=== PATIENT | male | born 1980 | race Caucasian/White ===

== ENCOUNTER 2017-01-22 01:13 | Emergency (ER) | payer OTHER ==
[2017-01-22] MEDS ORDERED: LORazepam INJ* 2 MG/ML 1 ML VIAL IM ONE (02:03)
[2017-01-22] MEDS ORDERED: Ketorolac INJ* 60 MG/2 ML VIAL IM ONE (02:03)
[2017-01-22] MEDS ORDERED: oxyCODONE/Acetamin 5/325 MG* TAB PO ONE ×2 (03:29)
[2017-01-22 04:11] VITALS: BP 116/79
--- NOTE | 2017-01-22 08:04 | RAD ---
INDICATION: Low back pain. COMPARISON: There are no prior studies available for comparison. TECHNIQUE: 3 views of the lumbar spine were obtained including lateral, AP and a coned-down lateral view of the lumbar sacral junction. FINDINGS: There is a mild lumbar scoliosis convex toward the left side. The vertebra are otherwise in normal alignment. No fracture is seen. Disc spaces appear maintained. IMPRESSION: MILD SCOLIOSIS, OTHERWISE UNREMARKABLE STUDY.
--- NOTE | 2017-01-27 23:22 | ED ---
Lucian John Erika, scribed for Emil Orosco MD on 01/22/17 at 0219 . Back Pain - HPI Summary HPI Summary: Patient is a 36-year-old male presenting to the ED with a CC of back pain starting at 21:00 on 01/21/2017. Patient reports pain in the lower back. He reports he has chronic neck pain, and this is a similar quality to the pain in his neck but is lumbar. Pain has been gradually worsening, and was not alleviated by Toradol. Pain is aggravated by straightening his back. Patient states he has had similar symptoms 2x before. - History of Current Complaint Chief Complaint: EDBackInjuryPain Stated Complaint: BACK PAIN Time Seen by Provider: 01/22/17 02:00 Hx Obtained From: Patient Onset/Duration: Gradual Onset, Lasting Hours, Still Present Onset/Duration: Atraumatic Timing: Constant Severity Initially: Mild Severity Currently: Moderate Pain Intensity: 10 Pain Scale Used: 0-10 Numeric Aggravating Symptom(s): Movement - straightening back Alleviating Symptom(s): Nothing Associated Signs And Symptoms: Positive: Negative - Allergies/Home Medications Allergies/Adverse Reactions: Allergies Allergy/AdvReac Type Severity Reaction Status Date / Time No Known Allergies Allergy Verified 07/21/16 22:24 PMH/Surg Hx/FS Hx/Imm Hx Endocrine/Hematology History: Denies: Hx Anticoagulant Therapy, Hx Diabetes, Hx Thyroid Disease Cardiovascular History: Reports: Hx Hypertension Denies: Hx Congestive Heart Failure, Hx Deep Vein Thrombosis, Hx Myocardial Infarction, Hx Pacemaker/ICD Respiratory History: Denies: Hx Asthma, Hx Chronic Obstructive Pulmonary Disease (COPD), Hx Lung Cancer, Hx Pneumonia, Hx Pulmonary Embolism GI History: Denies: Hx Gall Bladder Disease, Hx Gastrointestinal Bleed, Hx Ulcer, Hx Urosepsis History: Denies: Hx Kidney Stones, Hx Renal Disease Neurological History: Denies: Hx Dementia, Hx Migraine, Hx Seizures, Hx Transient Ischemic Attacks (TIA) Psychiatric History: Denies: Hx Anxiety, Hx Depression, Hx Schizophrenia, Hx Bipolar Disorder - Surgical History Surgery Procedure, Year, and Place: Sinus, 04/13/15, Dr. Kyree Felder - Immunization History Date of Tetanus Vaccine: utd Date of Influenza Vaccine: utd Infectious Disease History: No Infectious Disease History: Denies: Hx Clostridium Difficile, Hx Hepatitis, Hx Human Immunodeficiency Virus (HIV), Hx of Known/Suspected MRSA, Hx Shingles, Hx Tuberculosis, Hx Known/ Suspected VRE, Hx Known/Suspected VRSA, History Other Infectious Disease, Traveled Outside the [place] in Last 30 Days - Family History Known Family History: Positive: Hypertension, Other - cancer Negative: Cardiac Disease - Social History Alcohol Use: None Hx Substance Use: No Substance Use Type: Reports: None Hx Tobacco Use: Yes Smoking Status (MU): Light Every Day Tobacco Smoker Type: Cigarettes Amount Used/How Often: 1/5 PPD Length of Time of Smoking/Using Tobacco: 2 Years Have You Smoked in the Last Year: Yes Review of Systems Negative: Fever Positive: Myalgia - back pain All Other Systems Reviewed And Are Negative: Yes Physical Exam Triage Information Reviewed: Yes Vital Signs On Initial Exam: Initial Vitals Temp Pulse Resp BP Pulse Ox 97.8 F 100 18 147/108 98 01/22/17 01:20 01/22/17 01:20 01/22/17 01:20 01/22/17 01:20 01/22/17 01:20 Vital Signs Reviewed: Yes - Noble Coma Scale Coma Scale Total: 15 Diagnostics - Vital Signs Vital Signs Temp Pulse Resp BP Pulse Ox 01/22/17 01:20 97.8 F 100 18 147/108 98 - Laboratory Lab Statement: Any lab studies that have been ordered have been reviewed, and results considered in the medical decision making process. - Radiology Lumbar Spine XR Xray Interpretation: No Acute Changes Radiology Interpretation Completed By: ED Physician Re-Evaluation - Re-Evaluation First Eval Re-Evaluation Time: 03:28 Change: Improved Comment: Discussed XR results with patient Back Pain Course/Dx - Course Assessment/Plan: A 36 y/o M presents to the ED with a CC of lower back pain. Lumbar XR shows no acute findings. Patient is given toradol and ativan in the ED course. Patient is discharged home with follow up from his PCP. - Diagnoses Provider Diagnoses: Back pain Discharge - Discharge Plan Condition: Stable Disposition: HOME Patient Education Materials: Back Pain (ED) Referrals: Kar Khan MD [Primary Care Provider] - Additional Instructions: Please follow up with your PCP. The documentation as recorded by the Lucian hines Erika accurately reflects the service I personally performed and the decisions made by , Emil Orosco MD.
== END 2017-01-22 04:10 | disposition home or self-care (01) ==
LOC: ED 01:13
DX: M54.9 Dorsalgia, unspecified (principal); F17.210 Nicotine dependence, cigarettes, uncomplicated; M41.9 Scoliosis, unspecified
CPT/HCPCS: 72100; 96372; 99282; A9270-GY; J1885; J2060

== ENCOUNTER 2017-04-11 02:54 | Emergency (ER) | payer OTHER ==
[2017-04-11 03:00] VITALS: BP 161/103
[2017-04-11] MEDS ORDERED: Cyclobenzaprine TAB* 10 MG PO ONE (03:15)
[2017-04-11] MEDS ORDERED: traMADol TAB* 50 MG PO ONE (03:16)
--- NOTE | 2017-04-11 03:24 | ED ---
Shabbir John Rebecca, scribed for Kary Bedolla MD on 04/11/17 at 0307 . Neck Pain - HPI Summary HPI Summary: Pt is a 36 y/ M who presents to ED c/o acute on chronic neck and back pain, worsened tonight and constant since onset. Pain is currently severe, ranked 9/ 10. Sx aggravated by recent rain and alleviated by nothing. Unchanged by 2 Oxycodone and 30 mg Toradol at 2200. PMHx degenerative disc disease for which he was prescribed the oxycodone and Toradol. - History of Current Complaint Chief Complaint: EDGeneral Stated Complaint: ALL OVER BODY ACHES Time Seen by Provider: 04/11/17 03:06 Hx Obtained From: Patient Timing: Constant Onset/Duration: Still Present Severity Currently: Severe Pain Intensity: 9 Pain Scale Used: 0-10 Numeric Location: Diffuse - Neck and back Aggravating Factors: Nothing Alleviating Factors: Nothing Associated Signs & Symptoms: Positive: Negative Related History: Other - PMHx degenerative disc disease - Allergies/Home Medications Allergies/Adverse Reactions: Allergies Allergy/AdvReac Type Severity Reaction Status Date / Time No Known Allergies Allergy Verified 04/11/17 02:55 PMH/Surg Hx/FS Hx/Imm Hx Endocrine/Hematology History: Denies: Hx Anticoagulant Therapy, Hx Diabetes, Hx Thyroid Disease Cardiovascular History: Reports: Hx Hypertension Denies: Hx Congestive Heart Failure, Hx Deep Vein Thrombosis, Hx Myocardial Infarction, Hx Pacemaker/ICD Respiratory History: Denies: Hx Asthma, Hx Chronic Obstructive Pulmonary Disease (COPD), Hx Lung Cancer, Hx Pneumonia, Hx Pulmonary Embolism GI History: Denies: Hx Gall Bladder Disease, Hx Gastrointestinal Bleed, Hx Ulcer, Hx Urosepsis History: Denies: Hx Kidney Stones, Hx Renal Disease Musculoskeletal History: Reports: Other Musculoskeletal History - Degenerative Disc Disease Neurological History: Denies: Hx Dementia, Hx Migraine, Hx Seizures, Hx Transient Ischemic Attacks (TIA) Psychiatric History: Denies: Hx Anxiety, Hx Depression, Hx Schizophrenia, Hx Bipolar Disorder - Surgical History Surgery Procedure, Year, and Place: Sinus, 04/13/15, Dr. Kyree Felder - Immunization History Date of Tetanus Vaccine: utd Date of Influenza Vaccine: utd Infectious Disease History: No Infectious Disease History: Denies: Hx Clostridium Difficile, Hx Hepatitis, Hx Human Immunodeficiency Virus (HIV), Hx of Known/Suspected MRSA, Hx Shingles, Hx Tuberculosis, Hx Known/ Suspected VRE, Hx Known/Suspected VRSA, History Other Infectious Disease, Traveled Outside the [place] in Last 30 Days - Family History Known Family History: Positive: Hypertension, Other - cancer Negative: Cardiac Disease - Social History Lives: With Family Alcohol Use: None Hx Substance Use: No Substance Use Type: Reports: None Hx Tobacco Use: Yes Smoking Status (MU): Light Every Day Tobacco Smoker Type: Cigarettes Amount Used/How Often: 1/5 PPD Length of Time of Smoking/Using Tobacco: 2 Years Have You Smoked in the Last Year: Yes Review of Systems Constitutional: Negative Eyes: Negative ENT: Negative Cardiovascular: Negative Respiratory: Negative Gastrointestinal: Negative Genitourinary: Negative Positive: Arthralgia - Acute on chronic neck and back pain Skin: Negative Neurological: Negative Psychological: Normal All Other Systems Reviewed And Are Negative: Yes Physical Exam - Summary Physical Exam Summary: General: Well appearing, no pain distress Skin: Warm, Skin Color Reflects Adequate Perfusion, Dry Eyes: EOMI, KOURTNEY ENT: Pharynx normal, TMs normal Neck: Supple, nontender Respiratory: CTA, breath sounds present, no rhonchi, no wheezes, no rales Cardiovascular: RRR, no murmur, no rub, no gallop Abdomen: Soft, nontender, Non-distended, no guarding, no rebound Bowel: Present Musculoskeletal: ANANDA, No edema, Diffuse neck and back pain Neuro: Sensory/motor intact, A&Ox3, CN intact 2-12 Psych: Affect/mood appropriate Triage Information Reviewed: Yes Vital Signs On Initial Exam: Initial Vitals Temp Pulse Resp BP Pulse Ox 97.6 F 97 20 161/103 99 04/11/17 02:57 04/11/17 02:57 04/11/17 02:57 04/11/17 02:57 04/11/17 02:57 Vital Signs Reviewed: Yes Diagnostics - Vital Signs Vital Signs Temp Pulse Resp BP Pulse Ox 04/11/17 02:57 97.6 F 97 20 161/103 99 - Laboratory Lab Statement: Any lab studies that have been ordered have been reviewed, and results considered in the medical decision making process. Neck Course/Dx - Course Course Of Treatment: 36 yo male who has djd and received 180 tabs of oxycodone monthly (weblogic administrator checked) pt here with exacerbation of his neck and diffuse back pain without trauma or cause. Not wanting to disrupt his narcotic med prescriptions pt was offered ultram and flexeril and a few doses were sent to his pharmacy - Diagnoses Provider Diagnoses: Chronic pain Discharge - Discharge Plan Condition: Stable Disposition: HOME Prescriptions: Cyclobenzaprine TAB* [Flexeril 10 MG TAB*] 10 mg PO TID PRN #14 tab PRN Reason: Spasms traMADol TAB* [Ultram*] 50 mg PO Q12H PRN #7 tab MDD 2 PRN Reason: Pain The documentation as recorded by the Shabbir hines Rebecca accurately reflects the service I personally performed and the decisions made by me, Kary Bedolla MD.
== END 2017-04-11 03:37 | disposition home or self-care (01) ==
LOC: ED 02:54
DX: G89.29 Other chronic pain (principal); M54.9 Dorsalgia, unspecified; M54.2 Cervicalgia; F17.210 Nicotine dependence, cigarettes, uncomplicated
CPT/HCPCS: 99282; A9270-GY

== ENCOUNTER 2017-06-03 12:30 | Emergency (ER) | payer OTHER ==
[2017-06-03 12:42] VITALS: BP 130/81
--- NOTE | 2017-06-03 13:24 | UC ---
Hip/Pelvis Pain - HPI Summary HPI Summary: 36 you male with a one week hx of right thigh pain/tenderness/swelling Are seems very localized no trauma pain worse with touch worse with climbing stairs his leg has buckled a few times - History Of Current Complaint Chief Complaint: UCLowerExtremity Stated Complaint: RIGHT THIGH PAIN Time Seen by Provider: 06/03/17 12:57 Hx Obtained From: Patient Onset/Duration: Gradual Onset, Lasting Weeks - 3 Timing: Constant Severity Initially: Moderate Severity Currently: Moderate Pain Intensity: 3 - 9 at times Pain Scale Used: 0-10 Numeric Location: Discrete At: Character Of Pain: Unable To Describe Aggravating Factor(s): Weight Bearing, Other - touch/strairs Alleviating Factor(s): Rest, OTC Medications - relief with advil Associated Signs And Symptoms: Positive: Swelling Torso: 1 - swollen/tender. feels like quadricept mass. no warmth or redness. skin intact - Allergies/Home Medications Allergies/Adverse Reactions: Allergies Allergy/AdvReac Type Severity Reaction Status Date / Time No Known Allergies Allergy Verified 06/03/17 12:37 Home Medications: Home Medications NK [No Home Medications Reported] 06/03/17 [History Confirmed 06/03/17] PMH/Surg Hx/FS Hx/Imm Hx Previously Healthy: Yes Other History Of: Negative For: HIV, Hepatitis B, Hepatitis C, Anticoagulant Therapy - Surgical History Surgical History: Yes Surgery Procedure, Year, and Place: Sinus, 04/13/15, Dr. Kyree Felder - Family History Known Family History: Positive: Hypertension, Other - cancer Negative: Cardiac Disease - Social History Alcohol Use: None Substance Use Type: None Smoking Status (MU): Heavy Every Day Tobacco Smoker Type: Cigarettes Amount Used/How Often: 1 PPD Length of Time of Smoking/Using Tobacco: 2 Years Have You Smoked in the Last Year: Yes Household Exposure Type: Cigarettes - Immunization History Most Recent Influenza Vaccination: no Review of Systems Constitutional: Negative Skin: Negative Eyes: Negative ENT: Negative Respiratory: Negative Cardiovascular: Negative Gastrointestinal: Negative Genitourinary: Negative Motor: Negative Neurovascular: Negative Musculoskeletal: Myalgia Neurological: Negative Psychological: Negative All Other Systems Reviewed And Are Negative: Yes Physical Exam Triage Information Reviewed: Yes Appearance: Well-Appearing, No Pain Distress, Well-Nourished Vital Signs: Initial Vital Signs Temp 99.4 F 06/03/17 12:37 Pulse 83 06/03/17 12:37 Resp 16 06/03/17 12:37 BP 130/81 06/03/17 12:37 Pulse Ox 100 06/03/17 12:37 Vital Signs Reviewed: Yes Eyes: Positive: Conjunctiva Clear ENT: Positive: Hearing grossly normal. Negative: Nasal congestion, Nasal drainage, Trismus, Muffled/hoarse voice Neck: Positive: Supple, Nontender, No Lymphadenopathy Respiratory: Positive: Lungs clear, Normal breath sounds, No respiratory distress, No accessory muscle use Cardiovascular: Positive: RRR, No Murmur, Pulses Normal Abdomen Description: Positive: Nontender, No Organomegaly, Soft Musculoskeletal: Positive: Other: - see image Neurological: Positive: Alert Psychological Exam: Normal Skin Exam: Normal Hip Injury Course/Dx - Differential Dx/Diagnosis Provider Diagnoses: right thigh tenderness (?mass quadricepts) Discharge - Discharge Plan Condition: Stable Disposition: HOME Referrals: [facility] [Outside] (call for help finding a local MD) eHrmilo Hidalgo MD [Medical Doctor] - Additional Instructions: I am unsure of the cause of your localized right anterior thigh pain and swelling I think you need some special imaging to determine the cause advil
== END 2017-06-03 13:25 | disposition home or self-care (01) ==
LOC: UCCORT 12:30
DX: M79.651 Pain in right thigh (principal); F17.210 Nicotine dependence, cigarettes, uncomplicated
CPT/HCPCS: 99211; G0463

== ENCOUNTER 2017-12-23 17:08 | Emergency (ER) | payer OTHER ==
[2017-12-23 17:36] VITALS: BP 133/83
[2017-12-23] MEDS ORDERED: Naproxen TAB* 250 MG PO ONE (17:43)
--- NOTE | 2017-12-23 17:46 | UC ---
Throat Pain/Nasal Parker HPI - HPI Summary HPI Summary: I'm having "temporal mandibular joint pain" for about 1 week. denies any injury or dental pain. - History of Current Complaint Chief Complaint: UCDentalProblem Stated Complaint: JAW PAIN Time Seen by Provider: 12/23/17 17:35 Hx Obtained From: Patient Onset/Duration: Gradual Onset Pain Intensity: 7 Associated Signs & Symptoms: Negative: Dysphagia, Drooling, Fever, Rash Related History: Prior ENT Surgery - Epiglottits Risk Factors Epiglottis Risk Factors: Negative - Allergies/Home Medications Allergies/Adverse Reactions: Allergies Allergy/AdvReac Type Severity Reaction Status Date / Time No Known Allergies Allergy Verified 12/23/17 17:36 PMH/Surg Hx/FS Hx/Imm Hx - Additional Past Medical History Additional PMH: sinusitis Other History Of: Negative For: HIV, Hepatitis B, Hepatitis C, Anticoagulant Therapy - Surgical History Surgical History: Yes Surgery Procedure, Year, and Place: Sinus, 04/13/15, Dr. Kyree Felder - Family History Known Family History: Positive: Hypertension, Other - cancer Negative: Cardiac Disease - Social History Occupation: Employed Full-time Alcohol Use: None Substance Use Type: None Smoking Status (MU): Heavy Every Day Tobacco Smoker Type: Cigarettes Amount Used/How Often: 1 PPD Length of Time of Smoking/Using Tobacco: 2 Years Have You Smoked in the Last Year: Yes Household Exposure Type: Cigarettes - Immunization History Most Recent Influenza Vaccination: no Vaccination Up to Date: Yes Review of Systems Constitutional: Negative Skin: Negative Eyes: Negative ENT: Negative Respiratory: Negative Cardiovascular: Negative Gastrointestinal: Negative Genitourinary: Negative Motor: Negative Neurovascular: Negative Musculoskeletal: Negative Neurological: Negative Psychological: Negative Is Patient Immunocompromised?: No All Other Systems Reviewed And Are Negative: Yes Physical Exam Triage Information Reviewed: Yes Appearance: Well-Appearing Vital Signs: Initial Vital Signs Temp 98 F 12/23/17 17:28 Pulse 82 12/23/17 17:28 Resp 16 12/23/17 17:28 BP 133/83 12/23/17 17:28 Pulse Ox 97 12/23/17 17:28 Vital Signs Reviewed: Yes Eyes: Positive: Conjunctiva Clear ENT: Positive: Pharynx normal, TMs normal, Other - Tender over R TMJ and pain with active ROM. Negative: Nasal congestion, Nasal drainage, Trismus Dental: Negative: Percussion Tenderness @, Dental Fracture @, Abscess @ Neck: Positive: Supple, Nontender, No Lymphadenopathy Respiratory: Positive: Lungs clear, Normal breath sounds Cardiovascular: Positive: RRR, No Murmur Abdomen Description: Positive: Nontender, No Organomegaly, Soft Bowel Sounds: Positive: Present Musculoskeletal: Positive: No Edema Neurological: Positive: Alert Psychological: Positive: Age Appropriate Behavior Skin Exam: Normal Throat Pain/Nasal Course/Dx - Course Course Of Treatment: exam c/w R TMJ syndrom. pt is established with Dr Adorno and will f/u with him - Differential Dx/Diagnosis Provider Diagnoses: R TMJ syndrom Discharge - Discharge Plan Condition: Stable Disposition: HOME Prescriptions: Naproxen [Naprosyn] 500 mg PO BID 7 Days #14 tablet Patient Education Materials: Temporomandibular Disorder (ED) Referrals: Leti Hallman MD [Primary Care Provider] - As Soon As Possible Gualberto Adorno MD [Medical Doctor] - As Soon As Possible
== END 2017-12-23 17:55 | disposition home or self-care (01) ==
LOC: UCCORT 17:08
DX: M26.601 Right temporomandibular joint disorder, unspecified (principal); F17.210 Nicotine dependence, cigarettes, uncomplicated
CPT/HCPCS: 99212; A9270-GY; G0463

== ENCOUNTER 2018-11-27 17:07 | Emergency (ER) | payer OTHER ==
--- NOTE | 2018-11-27 18:10 | UC ---
UC General HPI - HPI Summary HPI Summary: since last pm, pt c/o sinus congestion, n/v, fatigue and feeling light headed. + body aches and fever. 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 no diarrhea. did not take his BP pills today. states avg BP 120/80 but BP sometimes runs low like now as well. denies any changes in his pain and BP medication doses. - History of Current Complaint Chief Complaint: UCGeneralIllness Stated Complaint: SINUS PRESSURE,VOMITING,DIZZY Time Seen by Provider: 11/27/18 18:00 Hx Obtained From: Patient Pain Intensity: 5 Associated Signs & Symptoms: Negative: Abdominal Pain, Cough, Diarrhea - Allergy/Home Medications Allergies/Adverse Reactions: Allergies Allergy/AdvReac Type Severity Reaction Status Date / Time No Known Allergies Allergy Verified 11/27/18 17:30 Home Medications: Home Medications Albuterol HFA INHALER* [Ventolin HFA Inhaler*] 2 puff INH Q4H PRN 11/27/18 [ History Confirmed 11/27/18] Lisinopril/HCTZ 20/25(NF) [Zestoretic 20/25(NF)] 1 tab PO DAILY 11/27/18 [ History Confirmed 11/27/18] amLODIPine TAB* [Norvasc 5 mg TAB*] 5 mg PO DAILY 11/27/18 [History Confirmed ] oxyCODONE TAB* [Roxycodone TAB 5 mg*] 5 mg PO Q8H PRN 11/27/18 [History Confirmed 11/27/18] PMH/Surg Hx/FS Hx/Imm Hx - Additional Past Medical History Additional PMH: thymus tumor, chronic back pain Cardiovascular History: Hypertension Other History Of: Negative For: HIV, Hepatitis B, Hepatitis C, Anticoagulant Therapy - Surgical History Surgical History: Yes Surgery Procedure, Year, and Place: Sinus, 04/13/15, Dr. Kyree Felder - Family History Known Family History: Positive: Hypertension, Other - cancer Negative: Cardiac Disease - Social History Alcohol Use: None Substance Use Type: None Smoking Status (MU): Heavy Every Day Tobacco Smoker Type: Cigarettes Amount Used/How Often: 1 PPD Length of Time of Smoking/Using Tobacco: 2 Years Have You Smoked in the Last Year: Yes Household Exposure Type: Cigarettes - Immunization History Most Recent Influenza Vaccination: no Vaccination Up to Date: Yes Review of Systems All Other Systems Reviewed And Are Negative: Yes Constitutional: Positive: Fever, Fatigue Skin: Positive: Negative Eyes: Positive: Negative ENT: Positive: Nasal Discharge, Sinus Congestion, Sinus Pain/Tenderness Respiratory: Positive: Negative Cardiovascular: Positive: Negative Gastrointestinal: Positive: Vomiting, Nausea Genitourinary: Positive: Negative Motor: Positive: Negative Neurovascular: Positive: Negative Musculoskeletal: Positive: Myalgia Neurological: Positive: Negative Psychological: Positive: Negative Is Patient Immunocompromised?: No Physical Exam Triage Information Reviewed: Yes Appearance: Well-Appearing Vital Signs: Initial Vital Signs Temp 97.9 F 11/27/18 17:26 Pulse 80 11/27/18 17:26 Resp 17 11/27/18 17:26 BP 95/57 11/27/18 17: Pulse Ox 100 11/27/18 17:26 Vital Signs Reviewed: Yes Eyes: Positive: Conjunctiva Clear ENT: Positive: Pharynx normal, TMs normal. Negative: Nasal drainage, Sinus tenderness Neck: Positive: Supple, Nontender, No Lymphadenopathy Respiratory: Positive: Lungs clear, Normal breath sounds Cardiovascular: Positive: RRR, No Murmur Abdomen Description: Positive: Nontender, No Organomegaly, Soft Bowel Sounds: Positive: Present Musculoskeletal: Positive: ROM Intact Neurological: Positive: Alert Psychological: Positive: Age Appropriate Behavior Skin Exam: Normal Skin: Negative: Rashes Diagnostics - Laboratory Diagnostic Studies Completed/Ordered: RAPID FLU=NEGATIVE Re-Evaluation - Re-Evaluation First Eval Re-Evaluation Time: 19:17 Change: Unchanged - REPEAT BP UNCHANGED. PT DRANK SMALL CAN OF GINGERALE WITH NO N/V/D. PT STATES THAT HIS BP WILL RUN LOW LIKE THIS OFTEN, HE TAKES IT AT HOME. Course/Dx - Course Course Of Treatment: no significant changes with orthostatic vs and pt denies any dizziness or light headed with position changes. taking po fluids here. i do not feel beta melissa toxicity. - Diagnoses Provider Diagnosis: Viral syndrome Discharge - Sign-Out/Discharge Documenting (check all that apply): Patient Departure All imaging exams completed and their final reports reviewed: No Studies - Discharge Plan Condition: Stable Disposition: HOME Patient Education Materials: Viral Syndrome (ED) Forms: *Work Release Referrals: Janie Call MD [Primary Care Provider] - 3 Days Additional Instructions: HOLD BLOOD PRESSURE MEDICATIONS UNTIL YOUR BP IS ABOVE 120 SYSTOLIC(TOP NUMBER). go to the emergency room for any worsening. - Billing Disposition and Condition Condition: STABLE Disposition: Home - Attestation Statements Provider Attestation: I was available for consult. This patient was seen by the DARVIN. The patient was not presented to, seen by, or examined by me. -Sheyla
[2018-11-27 18:48] LABS: Influenza A Molecular NEGATIVE (Negative); Influenza B Molecular NEGATIVE (Negative)
[2018-11-27 19:15] VITALS: BP 95/59
== END 2018-11-27 19:41 | disposition home or self-care (01) ==
LOC: UCCORT 17:07
DX: B34.9 Viral infection, unspecified (principal); I10 Essential (primary) hypertension; F17.210 Nicotine dependence, cigarettes, uncomplicated
CPT/HCPCS: 99212; G0463

== ENCOUNTER 2019-07-18 20:15 | Emergency (ER) | payer MEDICAID, OTHER ==
[2019-07-18 21:13] VITALS: BP 132/92
--- NOTE | 2019-07-18 21:23 | UC ---
Lower Extremity/Ankle HPI - HPI Summary HPI Summary: 38-year-old male presents with redness and tenderness to his dorsal left foot. States one week ago he actually scratched the top of his foot. The next day started noticing some redness and tenderness that is progressively worsened over the past week. States after for 5 days he noticed some small blisters near where he scratched his foot that have opened in been draining. 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 Denies fever or chills. - History of Current Complaint Chief Complaint: [facility] Stated Complaint: LEFT FOOT INFECTION Time Seen by Provider: 07/18/19 21:21 Hx Obtained From: Patient Pain Intensity: 7 - Allergies/Home Medications Allergies/Adverse Reactions: Allergies Allergy/AdvReac Type Severity Reaction Status Date / Time No Known Allergies Allergy Verified 07/18/19 21:06 PMH/Surg Hx/FS Hx/Imm Hx Cardiovascular History: Hypertension Other History Of: Negative For: HIV, Hepatitis B, Hepatitis C, Anticoagulant Therapy - Surgical History Surgical History: Yes Surgery Procedure, Year, and Place: Sinus, 04/13/15, Dr. Kyree Felder - Family History Known Family History: Positive: Hypertension, Other - cancer Negative: Cardiac Disease - Social History Occupation: Unemployed Lives: With Family Alcohol Use: None Substance Use Type: Prescribed Substance Use Comment - Amount & Last Used: oxycodone Smoking Status (MU): Heavy Every Day Tobacco Smoker Type: Cigarettes Amount Used/How Often: 1/2 PPD Length of Time of Smoking/Using Tobacco: 15 Years Have You Smoked in the Last Year: Yes Household Exposure Type: Cigarettes - Immunization History Most Recent Influenza Vaccination: no Most Recent Tetanus Shot: 2018 Vaccination Up to Date: Yes Review of Systems All Other Systems Reviewed And Are Negative: Yes Constitutional: Negative: Fever, Chills Skin: Positive: Other - See HPI Respiratory: Positive: Negative Cardiovascular: Positive: Negative Gastrointestinal: Positive: Negative Genitourinary: Positive: Negative Musculoskeletal: Positive: Negative Neurological: Positive: Negative Is Patient Immunocompromised?: No Physical Exam - Summary Physical Exam Summary: GENERAL APPEARANCE: Well developed, well nourished, alert and cooperative, and appears to be in no acute distress. CARDIAC: Normal S1 and S2. No S3, S4 or murmurs. Rhythm is regular. There is no peripheral edema, cyanosis or pallor. Extremities are warm and well perfused. Capillary refill is less than 2 seconds. Peripheral pulses intact. LUNGS: Clear to auscultation without rales, rhonchi, wheezing or diminished breath sounds. ABDOMEN: Positive bowel sounds. Soft, nondistended, nontender. No guarding or rebound. No masses or hepatosplenomegally. MUSKULOSKELETAL: ROM intact to all extremities. No joint erythema or tenderness. Normal muscular development. Normal gait. EXTREMITIES: 4.5 cm x 5 cm area of erythema with induration, some central darkening, and an open vesicular lesion with small amount of clear drainage to the dorsal left foot. No fluctuance was noted. SKIN: Skin normal color, texture and turgor. Triage Information Reviewed: Yes Vital Signs: Initial Vital Signs Temp 98 F 07/18/19 21:08 Pulse 75 07/18/19 21:08 Resp 15 07/18/19 21:08 BP 132/92 07/18/19 21:08 Pulse Ox 100 07/18/19 21:08 Vital Signs Reviewed: Yes Lower Extremity Course/Dx - Course Course Of Treatment: 38-year-old male presents with redness and tenderness to his dorsal left foot. States one week ago he actually scratched the top of his foot. The next day started noticing some redness and tenderness that is progressively worsened over the past week. States after for 5 days he noticed some small blisters near where he scratched his foot that have opened in been draining. 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 Denies fever or chills. Afebrile. Vital signs stable. Patient had a 4.5 cm x 5 cm area of erythema with induration, some central darkening, and an open vesicular lesion with small amount of clear drainage to the dorsal left foot. No fluctuance was noted. Discussed with the patient that he appeared to have cellulitis in that based on the appearance of the wound and his past history I suspect that the underlying cause may be MRSA. We will treat with Bactrim DS 1 tablet twice a day 7 days. He was given the first dose in the clinic. He is also to clean the wound twice a day and apply appears in ointment and cover with a gauze dressing. A dressing was applied by the RN prior to discharge. He is to follow-up with his primary care provider in 3 days especially if symptoms are not improving. Anticipatory guidance and warning symptoms were reviewed with the patient. Verbalizes understanding and agrees to plan of care. - Differential Dx/Diagnosis Differential Diagnosis/HQI/PQRI: Cellulitis, Infection, Other - MRSA Provider Diagnosis: Cellulitis of left foot Discharge ED - Sign-Out/Discharge Documenting (check all that apply): Patient Departure All imaging exams completed and their final reports reviewed: No Studies - Discharge Plan Condition: Stable Disposition: HOME Prescriptions: Sulfamethox/Trimethoprim DS* [Bactrim DS 800/160 TAB*] 1 tab PO BID #13 tab Patient Education Materials: MRSA (Methicillin-Resistant Staphylococcus Aureus ) (ED), Cellulitis (ED) Referrals: Janie Call MD [Primary Care Provider] - 3 Days (If no improvement.) Additional Instructions: You have an infection of the skin called cellulitis. Based on the appearance of the wound and your past history of MRSA we will start you on an antibiotic that will cover for this as a possible cause of the infection. Take Bactrim DS 1 tab twice a day for 7 days. We gave you the first dose in the clinic. Keep the wound clean with a mild soap and water. Apply mupirocin ointment to the wound and cover with a gauze dressing. You should change this twice a day. Follow-up with your primary care provider in 3 days if symptoms are not improving. Seek immediate medical attention in the emergency room if you develop fever greater than 100.5 F, the redness continues to rapid spread, swelling of the foot or toes, severe pain, or any worsening of symptoms. - Billing Disposition and Condition Condition: STABLE Disposition: Home
[2019-07-18] MEDS ORDERED: Sulfamethox/Trimethoprim DS 800/160* TAB PO ONE (21:26)
[2019-07-18] MEDS ORDERED: Mupirocin 2% OINT* TUBE TOPICAL ONE (21:31)
== END 2019-07-18 21:46 | disposition home or self-care (01) ==
LOC: UCCORT 20:15
DX: L03.116 Cellulitis of left lower limb (principal); F17.210 Nicotine dependence, cigarettes, uncomplicated
CPT/HCPCS: 99213; A9270-GY; G0463

== ENCOUNTER 2020-01-07 17:01 | Emergency (ER) | payer OTHER ==
--- NOTE | 2020-01-07 17:09 | UC ---
FLU HPI - HPI Summary HPI Summary: 39 yo male presents with flu-like symptoms. He tells me that 1 week ago he noticed a sore throat and mild cough. On 01/03 and 01/04 he developed body aches and fatigue. These symptoms are improved, but he is still having an intermittent dry cough. Today he felt short of breath and used his albuterol inhaler with great relief. He notes that he had his thymus removed in 2018 and was very short of breath around that time - does not feel like that today. He has not been taking anything OTC for his symptoms. He denies fever, sinus symptoms, chest pain, abdominal pain, n/v. No known exposure to COVID. Did not get a flu shot this year. - History of Current Complaint Stated Complaint: SHORT OF BREATH Time Seen by Provider: 01/07/20 17:08 Hx Obtained From: Patient - Allergy/Home Medications Allergies/Adverse Reactions: Allergies Allergy/AdvReac Type Severity Reaction Status Date / Time No Known Allergies Allergy Verified 01/07/20 17:24 Home Medications: Home Medications Naproxen [Naprosyn] 500 mg PO BID 7 Days #14 tablet 12/23/17 [Rx Confirmed 01/06] Lisinopril/HCTZ (NF) [Zestoretic (NF)] 1 tab PO DAILY 11/27/18 [ History Confirmed 01/07/20] amLODIPine TAB* [Norvasc 5 mg TAB*] 5 mg PO DAILY 11/27/18 [History Confirmed ] oxyCODONE TAB* [Roxycodone TAB 5 mg*] 15 mg PO Q8H PRN 11/27/18 [History Confirmed 01/07/20] PMH/Surg Hx/FS Hx/Imm Hx - Additional Past Medical History Additional PMH: Chronic Pain HTN Other History Of: Negative For: HIV, Hepatitis B, Hepatitis C, Anticoagulant Therapy - Surgical History Surgical History: Yes Surgery Procedure, Year, and Place: Sinus, 04/13/15, Dr. Kyree Felder. SINUS SURGERY [facility] 2019 - Family History Known Family History: Positive: Hypertension, Other - cancer Negative: Cardiac Disease - Social History Lives: With Family Alcohol Use: None Substance Use Type: Prescribed Substance Use Comment - Amount & Last Used: oxycodone Smoking Status (MU): Heavy Every Day Tobacco Smoker Type: Cigarettes Amount Used/How Often: 1/2 PPD Length of Time of Smoking/Using Tobacco: 15 Years Have You Smoked in the Last Year: Yes Household Exposure Type: Cigarettes - Immunization History Most Recent Influenza Vaccination: no Most Recent Tetanus Shot: 2018 Vaccination Up to Date: Yes Review of Systems All Other Systems Reviewed And Are Negative: No Constitutional: Positive: Fatigue, Other - Body aches Skin: Positive: Negative Eyes: Positive: Negative ENT: Positive: Sore Throat Respiratory: Positive: Cough Cardiovascular: Positive: Negative Gastrointestinal: Positive: Negative Neurological/Mental Status: Positive: Negative Psychological: Positive: Negative Physical Exam - Summary Physical Exam Summary: GENERAL: NAD. WDWN. No pain distress. SKIN: No rashes, sores, lesions, or open wounds. HEENT: Head: AT/NC Eyes: EOM intact. Conjunctiva clear without inflammation or discharge. Ears: Hearing grossly normal. TMs intact, no bulging, erythema, or edema. Nose: Nasal mucosa pink and moist. NTTP maxillary and frontal sinus. Throat: Posterior oropharynx without exudates, erythema, or tonsillar enlargement. Uvula midline. NECK: Supple. Nontender. No lymphadenopathy. CHEST: CTAB. No r/r/w. No accessory muscle use. Breathing comfortably and in no distress. CV: RRR. Pulses intact. Cap refill <2seconds NEURO: Alert. PSYCH: Age appropriate behavior. Triage Information Reviewed: Yes Vital Signs: Vital Signs: Temp Pulse Resp BP Pulse Ox 98.3 F 104 16 146/92 97 01/07/20 17:51 01/07/20 17:51 01/07/20 17:51 01/07/20 17:51 01/07/20 17:51 Vital Signs Reviewed: Yes Diagnostics - Radiology CXR Radiology Interpretation Completed By: Radiologist Summary of Radiographic Findings: IMPRESSION: No active cardiopulmonary disease is noted. Flu Course/Dx - Course Course Of Treatment: CXR NEGATIVE. POC strep and flu negative. Exam performed utilizing CDC recommended PPE. You are being tested for COVID-19. You need to quarantine yourself in a bedroom and bathroom only you are using. You may not leave the house. [facility] will contact you and notify of results when they are available. Advised to be on home isolation until cleared by the health department. Go to ED for increased SOB or any difficulty breathing - new or worsening symptoms. - Differential Dx/Diagnosis Provider Diagnosis: Viral syndrome Discharge ED - Sign-Out/Discharge Documenting (check all that apply): Patient Departure All imaging exams completed and their final reports reviewed: No - Discharge Plan Condition: Stable Disposition: HOME Patient Education Materials: Viral Syndrome (ED) Referrals: Janie Call MD [Primary Care Provider] - Additional Instructions: STREP AND FLU NEGATIVE TODAY CHEST X - RAY NORMAL You are being tested for COVID-19. You need to quarantine yourself in a bedroom and bathroom only you are using. You may not leave the house. [facility] will contact you and notify of results when they are available. Advised to be on home isolation until cleared by the health department. Go to ED for increased SOB or any difficulty breathing - new or worsening symptoms. - Billing Disposition and Condition Condition: STABLE Disposition: Home
[2020-01-07 17:51] VITALS: BP 146/92
[2020-01-07 18:11] LABS: Influenza A Molecular Negative (Negative); Influenza B Molecular Negative (Negative)
--- NOTE | 2020-01-07 19:48 | UC ---
Course/Dx - Diagnoses Provider Diagnoses: Viral syndrome Discharge ED - Sign-Out/Discharge Documenting (check all that apply): Post-Discharge Follow Up All imaging exams completed and their final reports reviewed: Yes - Discharge Plan Condition: Stable Disposition: HOME Patient Education Materials: Viral Syndrome (ED) Referrals: Janie Call MD [Primary Care Provider] - Additional Instructions: STREP AND FLU NEGATIVE TODAY CHEST X - RAY NORMAL You are being tested for COVID-19. You need to quarantine yourself in a bedroom and bathroom only you are using. You may not leave the house. [facility] will contact you and notify of results when they are available. Advised to be on home isolation until cleared by the health department. Go to ED for increased SOB or any difficulty breathing - new or worsening symptoms. - Billing Disposition and Condition Condition: STABLE Disposition: Home
== END 2020-01-07 18:38 | disposition home or self-care (01) ==
LOC: UCEAST 17:01
DX: B34.9 Viral infection, unspecified (principal); I10 Essential (primary) hypertension; F17.210 Nicotine dependence, cigarettes, uncomplicated; Z79.899 Other long term (current) drug therapy
CPT/HCPCS: 71046; 87651; 99211; G0463; U0002